=== PATIENT | female | born 1965 | race Caucasian/White ===

== ENCOUNTER 2021-12-10 08:40 | Day surgery (SDC) | payer BC ==
[~2021-12-10] VITALS: Ht 162.6 cm; Wt 71.7 kg
[~2021-12-10 08:40] MED LIST: CEFAZOLIN SOD 1 GM in D5W 50 ML IV ONE
[2021-12-10 09:40] LABS: HCG,QUAL RESULT NEGATIVE (NEGATIVE)
[2021-12-10] MEDS ORDERED: LR 1,000 ML IV.SOLN IV ONE (12:47)
[2021-12-10] MEDS ORDERED: KETOROLAC TROMETHAMINE 30 MG VIAL IVP ONE (12:47)
[2021-12-10] MEDS ORDERED: SEVOFLURANE 15 MIN GAS INH ONE (12:47)
[2021-12-10] MEDS ORDERED: ROCURONIUM BROMIDE 10 MG/ML (ZEMURON) IV ONE (12:47)
[2021-12-10] MEDS ORDERED: PROPOFOL 200MG/ 20ML VIAL (DIPRIVAN) IV ONE (12:47)
[2021-12-10] MEDS ORDERED: ONDANSETRON HCL 4 MG/2 ML VIAL IM PRN (15:15)
[2021-12-10] MEDS ORDERED: IBUPROFEN 800 MG TABLET PO PRN (15:15)
[2021-12-10] MEDS ORDERED: ONDANSETRON HCL 4 MG/2 ML VIAL IVP PRN (15:30)
[2021-12-10] MEDS ORDERED: HYDROmorphone 1 MG/ML INJ. CARTRIDGE IVP PRN ×2 (15:30)
[2021-12-10] MEDS ORDERED: LR 1,000 ML IV SCH (15:30)
[2021-12-10 17:14] VITALS: BP_SYST 140
[2021-12-10] MEDS ORDERED: OXYCODONE/ACETAMINOPHEN 5-325 TABLET PO PRN ×2 (18:30)
== END 2021-12-10 17:45 | disposition home or self-care (01) ==
LOC: SDS 08:40 → SMU 08:41 → SDS 17:45
PROVIDERS: ATTEND Obstetrics & Gynecology
DX: N84.0 Polyp of corpus uteri (principal); N83.202 Unspecified ovarian cyst, left side; N94.89 Other specified conditions associated with female genital organs and menstrual cycle; R93.89 Abnormal findings on diagnostic imaging of other specified body structures; E11.9 Type 2 diabetes mellitus without complications; E78.5 Hyperlipidemia, unspecified; M19.90 Unspecified osteoarthritis, unspecified site; Z20.822 Contact with and (suspected) exposure to COVID-19; Z90.49 Acquired absence of other specified parts of digestive tract; Z79.899 Other long term (current) drug therapy
CPT/HCPCS: 36415 ×2; 58661; 58558; 84703; 86886; 86900; 86901; 88304; 88305; 87426; U0003; J0690; J1885; J2704; J7060; J7120; C1782; C1819